=== PATIENT | female | born 1950 | race Caucasian/White ===

== ENCOUNTER 2017-05-24 09:03 | Inpatient (IN) | payer OTHER ==
[~2017-05-24] VITALS: Ht 144.8 cm; Wt 62.6 kg
[2017-05-24] VITALS (18 sets, daily range): BP systolic 95–150; BP diastolic 52–78; PULSE 81–113; RESP 16–24; TEMP 96.5–102.1; O2SAT 91–98
[~2017-05-24 09:03] MED LIST: PROZ20CA11 PO
[2017-05-24] MEDS ORDERED: VENL150C39 PO (09:49)
[2017-05-24] MEDS ORDERED: SODIUM CHLOR 0.9% 1000 ML INJ 1,000 ML IV ONE (10:08)
--- NOTE | 2017-05-24 10:08 | PD ---
HPI Chief Complaint: Cold / Flu Symptoms Time Seen by Provider: 09:50 Travel History International Travel<30 days: No Contact w/Intl Traveler<30days: No Traveled to known affect area: No History of Present Illness HPI This is a 66 year old female who presents to the emergency department with wet cough, fever, congestion and shortness of breath for 6 days, moderate severity, constant, associated with a productive cough with green sputum production. Pt has had decreased appetite and is eating and drinking less. (-) n/v/d (-) abdominal pain (-) dysuria Pt. did recently watch her sister's grandchildren who had colds. PFSH Past Medical History Narrative Medical depression Medical History: Denies Significant Hx Depression: Yes Immunizations Current: Yes Past Surgical History Joint Replacement: Yes (RIGHT KNEE) Social History Alcohol Use: No Tobacco Use: No (FORMER) Substance Use: No Allergies-Medications (Allergen,Severity, Reaction): Coded Allergies: No Known Allergies (Unverified Allergy, Unknown, 05/24/17) Reported Meds & Prescriptions Reported Meds & Active Scripts Active Reported Venlafaxine ER 24 HR (Venlafaxine HCl) 150 Mg Cap 150 Mg PO DAILY Review of Systems Except as stated in HPI: all other systems reviewed are Neg Physical Exam Narrative GENERAL:Uncomfortable appearing SKIN: Focused skin assessment warm and dry. HEAD: Atraumatic. Normocephalic. EYES: Pupils equal and round. No injection or drainage. ENT: Moist mucous membranes NECK: Trachea midline. CARDIOVASCULAR: Regular rate and rhythm. No murmur appreciated. RESPIRATORY: Wet cough with sputum production, Diffuse rhonchi with labored respirations GASTROINTESTINAL: Abdomen soft, non-tender, nondistended. MUSCULOSKELETAL: No obvious deformities. NEUROLOGICAL: Awake and alert. No obvious cranial nerve deficits. Moving all extremities PSYCHIATRIC: Appropriate mood and affect; insight and judgment normal. Data Data Last Documented VS Vital Signs Date Time Temp Pulse Resp B/P (MAP) Pulse Ox O2 Delivery O2 Flow Rate FiO2 05/24/17 11:25 94 20 101/52 (68) 97 Nasal Cannula 2.00 05/24/17 10:55 21 05/24/17 09:05 102.1 Orders Orders Complete Blood Count With Diff (05/24/17 10:08) Comprehensive Metabolic Panel (05/24/17 10:08) Lactic Acid Sepsis Protocol (05/24/17 10:08) Influenzae A/B Antigen (05/24/17 10:08) Blood Culture (05/24/17 10:08) Chest, Single Ap (05/24/17 10:08) Blood Glucose (05/24/17 10:08) Ecg Monitoring (05/24/17 10:08) Iv Access Insert/Monitor (05/24/17 10:08) Oximetry (05/24/17 10:08) Oxygen Administration (05/24/17 10:08) Sodium Chlor 0.9% 1000 Ml Inj (Ns 1000 M (05/24/17 10:08) Ceftriaxone Inj (Rocephin Inj) (05/24/17 10:15) Azithromycin (Zithromax) (05/24/17 10:15) Acetaminophen (Tylenol) (05/24/17 10:15) Albuterol-Ipratropium Neb (Duoneb Neb) (05/24/17 10:45) Type And Screen (05/24/17 11:04) Prothrombin Time / Inr (Pt) (05/24/17 11:04) Act Partial Throm Time (Ptt) (05/24/17 11:04) Hemoglobin (Hgb) (05/24/17 11:04) Red Blood Cells (Rbc) (05/24/17 12:02) Blood Product Administration (05/24/17 12:02) Sodium Chlor 0.9% 250 Ml Inj (Ns 250 Ml (05/24/17 12:15) Admit Order (Ed Use Only) (05/24/17 12:15) Labs Laboratory Tests Test 05/24/17 10:35 05/24/17 11:14 White Blood Count 13.8 TH/MM3 Red Blood Count 4.19 MIL/MM3 Hemoglobin 6.8 GM/DL 6.3 GM/DL Hematocrit 23.6 % Mean Corpuscular Volume 56.4 FL Mean Corpuscular Hemoglobin 16.1 PG Mean Corpuscular Hemoglobin Concent 28.6 % Red Cell Distribution Width 19.1 % Platelet Count 262 TH/MM3 Mean Platelet Volume 8.4 FL Neutrophils (%) (Auto) 85.3 % Lymphocytes (%) (Auto) 8.6 % Monocytes (%) (Auto) 5.4 % Eosinophils (%) (Auto) 0.1 % Basophils (%) (Auto) 0.6 % Neutrophils # (Auto) 11.8 TH/MM3 Lymphocytes # (Auto) 1.2 TH/MM3 Monocytes # (Auto) 0.7 TH/MM3 Eosinophils # (Auto) 0.0 TH/MM3 Basophils # (Auto) 0.1 TH/MM3 CBC Comment AUTO DIFF Differential Comment AUTO DIFF CONFIRMED Keratocytes OCC Blood Urea Nitrogen 6 MG/DL Creatinine 0.54 MG/DL Random Glucose 112 MG/DL Total Protein 7.9 GM/DL Albumin 2.7 GM/DL Calcium Level 8.5 MG/DL Alkaline Phosphatase 82 U/L Aspartate Amino Transf (AST/SGOT) 20 U/L Alanine Aminotransferase (ALT/SGPT) 24 U/L Total Bilirubin 0.3 MG/DL Sodium Level 137 MEQ/L Potassium Level 3.2 MEQ/L Chloride Level 102 MEQ/L Carbon Dioxide Level 25.0 MEQ/L Anion Gap 10 MEQ/L Estimat Glomerular Filtration Rate 114 ML/MIN Lactic Acid Level 2.7 mmol/L Prothrombin Time 11.1 SEC Prothromb Time International Ratio 1.0 RATIO Activated Partial Thromboplast Time 30.9 SEC MDM Medical Decision Making Medical Screen Exam Complete: Yes Emergency Medical Condition: Yes Interpretation(s) Microcytic anemia Leukocytosis 85% neutrophils Mild hypokalemia Lactic acid is 2.7 Chest x-ray: Patchy airspace disease in both lungs Differential Diagnosis Pneumonia, bronchitis, COPD exacerbation, pleural effusion, urinary tract infection, anemia, GI bleeding Narrative Course This is a 66-year-old female who presents to the emergency department with sepsis in the setting respiratory symptoms. She was febrile, tachycardic to 113 , and had a lactic acid of 2.7. She was placed on a monitor and an IV was established. She was given 1 L of IV hydration. A second liter was deferred as the patient is chronically ill and was likely going to receive blood transfusion and I was concerned about volume overload. Patient received empiric antibiotic therapy for pneumonia. Hemoccult was negative. I suspect her anemia is in the setting of chronic iron deficiency as she is significantly microcytic. Patient was admitted for continued IV antibiotics and blood transfusion. Physician Communication Physician Communication Discussed with Dr. Cifuentes Diagnosis Primary Impression: Community acquired pneumonia Qualified Codes: J18.9 - Pneumonia, unspecified organism Additional Impression: Sepsis Qualified Codes: A41.9 - Sepsis, unspecified organism Admitting Information Admitting Physician Requests: Admit Scripts Docusate Sodium (Dok) 100 Mg Cap 100 MG PO BID for Constipation, #60 CAP Prov: Magen Harrison MD 05/28/17 Albuterol 18 GM Inh (Ventolin Hfa 18 GM Inh) 90 Mcg/Act Aer 2 PUFF INH Q4-6H Y for SHORTNESS OF BREATH, #1 INHALER 0 Refills Prov: Magen Harrison MD 05/28/17 Omeprazole (Omeprazole) 40 Mg Cap 40 MG PO DAILY for ULCER, #30 CAP 0 Refills Prov: Magen Harrison MD 05/28/17 Ferrous Sulfate (Ferosul) 325 Mg (65 Mg Iron) Tablet 325 MG PO BID for anemia for 30 Days, TAB Prov: Magen Harrison MD 05/28/17 Levofloxacin (Levaquin) 750 Mg Tablet 750 MG PO DAILY for Infection for 1 Day, #1 TAB Prov: Magen Harrison MD 05/28/17 Kandy Nieves MD May 24, 2017 10:08
[2017-05-24] MEDS ORDERED: cefTRIAXone INJ 1,000 MG in SODIUM CHLORIDE 0.9% INJ 100 ML IV ONE (10:15)
[2017-05-24] MEDS ORDERED: AZITHROMYCIN 250 MG TAB PO ONE (10:15)
[2017-05-24] MEDS ORDERED: ACETAMINOPHEN 500 MG CPLT PO ONE (10:15)
--- NOTE | 2017-05-24 10:38 | RADRPT ---
EXAM DATE/TIME: 05/24/2017 10:20 [place] COMPARISON: No previous studies available for comparison. INDICATIONS : Fever, difficulty breathing, congestion. MEDICAL HISTORY : None. SURGICAL HISTORY : None. ENCOUNTER: Initial ACUITY: 1 week PAIN SCORE: 0/10 LOCATION: Bilateral chest FINDINGS: Patchy airspace disease in both lungs with peribronchial thickening. Heart size is appropriate. The re is no pneumothorax. CONCLUSION: Patchy airspace disease both lungs consistent with an inflammatory process. There is no consolidatio n. Renard Clark MD FACR on May 24, 2017 at 10:35 Board Certified Radiologist. This report was verified electronically.
[2017-05-24] MEDS ORDERED: RESP: ALBUTEROL 2.5 MG/IPRATROPIUM 0.5 MG NEB (SCH) NEB ONE (10:45)
[2017-05-24 10:58] LABS: AUTOMATED NEUTROPHIL # 11.8 TH/MM3 (1.8-7.7); BASOPHIL # 0.1 TH/MM3 (0-0.2); BASOPHIL % 0.6 % (0.0-2.0); EOSINOPHIL % 0.1 % (0.0-4.0); HEMATOCRIT 23.6 % (35.0-46.0); LYMPH % 8.6 % (9.0-44.0); LYMPHOCYTE # 1.2 TH/MM3 (1.0-4.8); MEAN CELL VOLUME 56.4 FL (80.0-100.0); MEAN CORPUSCULAR HEMOGLOBIN 16.1 PG (27.0-34.0); MONO % 5.4 % (0.0-8.0); NEUT % 85.3 % (16.0-70.0); PLATELET COUNT 262 TH/MM3 (150-450); RED BLOOD COUNT 4.19 MIL/MM3 (4.00-5.30); RED CELL DISTRIBUTION WIDTH 19.1 % (11.6-17.2); WHITE BLOOD COUNT 13.8 TH/MM3 (4.0-11.0)
[2017-05-24 10:59] LABS: MEAN CORPUSCULAR HGB CONC 28.6 % (32.0-36.0)
[2017-05-24 11:00] LABS: HEMO FLAGS AUTO DIFF
[2017-05-24 11:16] LABS: CHLORIDE 102 MEQ/L (98-107); POTASSIUM 3.2 MEQ/L (3.5-5.1); SODIUM (NA) 137 MEQ/L (136-145)
[2017-05-24 11:18] LABS: KERATOCYTES OCC (NORMAL); SCAN/DIFF AUTO DIFF CONFIRMED
[2017-05-24 11:19] LABS: ANION GAP 10 MEQ/L (5-15); BLOOD UREA NITROGEN 6 MG/DL (7-18)
[2017-05-24 11:22] LABS: ALT (GPT) 24 U/L (10-53); AST (GOT) 20 U/L (15-37)
[2017-05-24 11:23] LABS: GLOMERULAR FILTRATION RATE 114 ML/MIN (>89)
[2017-05-24 11:24] LABS: TOTAL BILIRUBIN ADULT 0.3 MG/DL (0.2-1.0)
[2017-05-24 11:25] LABS: ALKALINE PHOSPHATASE 82 U/L (45-117)
[2017-05-24 11:45] LABS: APTT (PATIENT) 30.9 SEC (24.3-30.1); PROTHROMBIN TIME - PATIENT 11.1 SEC (9.8-11.6)
[2017-05-24] MEDS ORDERED: SODIUM CHLOR 0.9% 250 ML INJ 250 ML IV ONE (12:15)
[2017-05-24] MEDS ORDERED: SODIUM CHLOR 0.9% 1000 ML INJ 1,000 ML IV SCH (12:48)
[2017-05-24 12:54] LABS: LACTIC ACID GHOST NOT REPORTABLE
[2017-05-24] MEDS ORDERED: MAGNESIUM HYDROXIDE SUSP 30 ML CUP PO PRN (13:00)
[2017-05-24] MEDS: LACTOBACILLUS ACIDOPHILUS TAB PO SCH ×2 (13:00→17:13)
[2017-05-24] MEDS ORDERED: ACETAMINOPHEN/HYDROcodone 325 MG/5 MG TAB PO PRN (13:00)
[2017-05-24] MEDS ORDERED: NALOXONE HCL 0.4 MG/ML AMP IV PUSH PRN (13:00)
[2017-05-24] MEDS ORDERED: SODIUM CHLORIDE 0.9% FLUSH 10 ML FLUSH IV FLUSH PRN (13:00)
[2017-05-24] MEDS ORDERED: ONDANSETRON HCL 4 MG/2 ML VIAL IVP PRN (13:00)
--- NOTE | 2017-05-24 15:12 | HHI.HP ---
[facility] Service [place] [facility] Primary Care Physician No Primary Care Physician Admission Diagnosis pneumonia Diagnoses: (1) Severe anemia Diagnosis: Principal (2) Symptomatic anemia Diagnosis: Principal (3) Community acquired pneumonia Diagnosis: Principal (4) Sepsis Diagnosis: Principal Travel History International Travel<30 Days: No Contact w/Intl Traveler <30 Da: No Traveled to Known Affected Are: No History of Present Illness Mrs. Miranda is a 66-year-old female. She came in secondary to fevers and cough. Fever, tachycardia, leukocytosis, and pneumonia qualified her for sepsis. No hypotension. She says that she isn't feeling ill for several days and with the onset of fever with progressively worsening cough she decided to come to emergency department at the urging of her sister. Anemia is also discovered. She has a hemoglobin level of 6.3 without evidence of GI bleed. We discussed different possibilities. When I mentioned poor iron absorption or low vitamin levels she admits that she has a poor diet and will often consume a liquid diet mostly. Malnutrition could be an etiology for her anemia then, but further workup is needed. She cannot recall any active bleed. She has not had any recent surgeries. She has a prior history of anemia without any need a transfusion that she can recall. No chest pain reported. She does have myalgias. Imaging shows bilateral pneumonia. At baseline she has hyperlipidemia and depression. She does not take cholesterol medicine secondary to a history of recall of one of her medications to try to treat her cholesterol with and the lack of trust in cholesterol medication treatments. She is on Effexor for depression treatment. No other complaints today. Review of Systems Constitutional: COMPLAINS OF: Fatigue, Fever, Chills, Night Sweats Eyes: DENIES: Diplopia, Eye inflammation, Eye pain Ears, nose, mouth, throat: DENIES: Hearing loss, Vertigo, Nasal discharge Respiratory: COMPLAINS OF: Cough, Sputum production, Shortness of breath, DENIES: Apneas, Wheezing Cardiovascular: DENIES: Chest pain, Palpitations, Syncope Gastrointestinal: DENIES: Abdominal pain, Black stools, Bloody stools, Constipation Musculoskeletal: DENIES: Joint pain, Muscle aches, Stiffness, Joint Swelling Integumentary: DENIES: Abnormal pigmentation, Pruritus, Rash, Nail changes Hematologic/lymphatic: DENIES: Bruising, Lymphadenopathy Immunologic/allergic: DENIES: Eczema, Urticaria Neurologic: DENIES: Abnormal gait, Headache, Paresthesias Psychiatric: DENIES: Anxiety, Confusion, Hallucinations Past Family Social History Past Medical History Depression Hyperlipidemia Past Surgical History Right knee surgery Reported Medications Reported Meds & Active Scripts Active Reported Venlafaxine ER 24 HR (Venlafaxine HCl) 150 Mg Cap 150 Mg PO DAILY Allergies: Coded Allergies: No Known Allergies (Unverified Allergy, Unknown, 05/24/17) Active Ordered Medications Administered Medications Medications (Trade) Dose Ordered Sig/[place] Route PRN Reason Start Time Stop Time Status Last Admin Dose Admin Sodium Chloride 250 ml @ 15 mls/hr ONCE ONCE IV 05/24/17 12:15 05/25/17 04:54 05/24/17 14:34 Sodium Chloride 1,000 ml @ 100 mls/hr Q10H IV 05/24/17 12:48 05/24/17 14:34 Family History Diabetes mellitus type 2 and patient's mother Social History No history of smoking No history of alcohol abuse No history of illicit drug abuse Physical Exam Vital Signs Vital Signs Date Time Temp Pulse Resp B/P (MAP) Pulse Ox O2 Delivery O2 Flow Rate FiO2 05/24/17 14:20 05/24/17 13:30 92 16 98/53 (68) 96 Nasal Cannula 2.00 05/24/17 12:57 99.0 97 20 99/52 (68) 94 Nasal Cannula 2.00 05/24/17 11:25 94 20 101/52 (68) 97 Nasal Cannula 2.00 05/24/17 10:55 91 21 05/24/17 10:55 97 Nasal Cannula 2.00 05/24/17 10:55 20 97 Nasal Cannula 2.00 05/24/17 10:00 113 20 111/69 (83) 97 Nasal Cannula 2.00 05/24/17 09:51 20 91 Room Air 05/24/17 09:05 102.1 113 24 150/78 (102) 95 Physical Exam GENERAL: NAD, A&Ox3 HEAD: Normocephalic. NECK: Supple, trachea midline. No lymphadenopathy. EYES: No scleral icterus. No injection or drainage. CARDIOVASCULAR: Regular rate and rhythm without murmurs, gallops, or rubs. RESPIRATORY: Breath sounds equal bilaterally. No accessory muscle use. Bilateral rhonchi GASTROINTESTINAL: Abdomen soft, non-tender, nondistended. MUSCULOSKELETAL: No cyanosis, or edema. SKIN: Warm and dry. NEURO: No focal neurological deficitis. Laboratory Laboratory Tests Test 05/24/17 10:35 05/24/17 11:14 05/24/17 12:45 White Blood Count 13.8 Red Blood Count 4.19 Hemoglobin 6.8 6.3 Hematocrit 23.6 Mean Corpuscular Volume 56.4 Mean Corpuscular Hemoglobin 16.1 Mean Corpuscular Hemoglobin Concent 28.6 Red Cell Distribution Width 19.1 Platelet Count 262 Mean Platelet Volume 8.4 Neutrophils (%) (Auto) 85.3 Lymphocytes (%) (Auto) 8.6 Monocytes (%) (Auto) 5.4 Eosinophils (%) (Auto) 0.1 Basophils (%) (Auto) 0.6 Neutrophils # (Auto) 11.8 Lymphocytes # (Auto) 1.2 Monocytes # (Auto) 0.7 Eosinophils # (Auto) 0.0 Basophils # (Auto) 0.1 CBC Comment AUTO DIFF Differential Comment AUTO DIFF CONFIRMED Keratocytes OCC Blood Urea Nitrogen 6 Creatinine 0.54 Random Glucose 112 Total Protein 7.9 Albumin 2.7 Calcium Level 8.5 Alkaline Phosphatase 82 Aspartate Amino Transf (AST/SGOT) 20 Alanine Aminotransferase (ALT/SGPT) 24 Total Bilirubin 0.3 Sodium Level 137 Potassium Level 3.2 Chloride Level 102 Carbon Dioxide Level 25.0 Anion Gap 10 Estimat Glomerular Filtration Rate 114 Lactic Acid Level 2.7 1.5 Prothrombin Time 11.1 Prothromb Time International Ratio 1.0 Activated Partial Thromboplast Time 30.9 Date/Time Source Procedure Growth Status 05/24/17 10:45 Blood Peripheral Aerobic Blood Culture Pending Received 05/24/17 10:45 Blood Peripheral Anaerobic Blood Culture Pending Received 05/24/17 10:50 Nasal Washing Influenza Types A,B Antigen (MARIO) - Final NEGATIVE FOR FLU A AND B ANTIGEN.... Complete Result Diagram: 05/24/17 1114 05/24/17 1035 Imaging Last Impressions Chest X-Ray 05/24/17 1008 Signed Impressions: Service Date/Time: Wednesday, May 24, 2017 10:20 - CONCLUSION: Patchy airspace disease both lungs consistent with an inflammatory process. There is no consolidation. Renard Clark MD FACR Caprini VTE Risk Assessment Caprini VTE Risk Assessment: No/Low Risk (score <= 1) Caprini Risk Assessment Model Point Value = 1 Point Value = 2 Point Value = 3 Point Value = 5 Age 41-60 Minor surgery BMI > 25 kg/m2 Swollen legs Varicose veins or History of unexplained or recurrent spontaneous Oral contraceptives or hormone replacement Sepsis (< 1 month) Serious lung disease, including pneumonia (< 1 month) Abnormal pulmonary function Acute myocardial infarction Congestive heart failure (< 1 month) History of inflammatory bowel disease Medical patient at bed rest Age 61-74 Arthroscopic surgery Major open surgery (> 45 min) Laparoscopic surgery (> 45 min) Malignancy Confined to bed (> 72 hours) Immobilizing plaster cast Central venous access Age >= 75 History of VTE Family history of VTE Factor V Leiden Prothrombin [id number] Lupus anticoagulant Anticardiolipin antibodies Elevated serum homocysteine Heparin-induced thrombocytopenia Other congenital or acquired thrombophilia Stroke (< 1 month) Elective arthroplasty Hip, pelvis, or leg fracture Acute spinal cord injury (< 1 month) Prophylaxis Regimen Total Risk Factor Score Risk Level Prophylaxis Regimen 0-1 Low Early ambulation 2 Moderate Order ONE of the following: *Sequential Compression Device (SCD) *Heparin 5000 units SQ BID 3-4 Higher Order ONE of the following medications: *Heparin 5000 units SQ TID *Enoxaparin/Lovenox 40 mg SQ daily (WT < 150 kg, CrCl > 30 mL/min) *Enoxaparin/Lovenox 30 mg SQ daily (WT < 150 kg, CrCl > 10-29 mL/min) *Enoxaparin/Lovenox 30 mg SQ BID (WT < 150 kg, CrCl > 30 mL/min) AND/OR *Sequential Compression Device (SCD) 5 or more Highest Order ONE of the following medications: *Heparin 5000 units SQ TID (Preferred with Epidurals) *Enoxaparin/Lovenox 40 mg SQ daily (WT < 150 kg, CrCl > 30 mL/min) *Enoxaparin/Lovenox 30 mg SQ daily (WT < 150 kg, CrCl > 10-29 mL/min) *Enoxaparin/Lovenox 30 mg SQ BID (WT < 150 kg, CrCl > 30 mL/min) AND *Sequential Compression Device (SCD) Assessment and Plan Problem List: (1) Community acquired pneumonia ICD Code: J18.9 - Pneumonia, unspecified organism (2) Severe anemia ICD Code: D64.9 - Anemia, unspecified (3) Symptomatic anemia ICD Code: D64.9 - Anemia, unspecified (4) Sepsis ICD Code: A41.9 - Sepsis, unspecified organism Assessment and Plan Assessment and plan 66-year-old female admitted secondary to bilateral pneumonia with sepsis Sepsis Treat infection Follow clinically IV hydration Monitor vital signs Bilateral pneumonia Community-acquired pneumonia Azithromycin Rocephin Probiotics Oxygen supplementation as needed As needed nebulized breathing treatments Severe anemia Symptomatic anemia Transfuse 1 unit of packed red blood cells on 05/24/17 Follow CBC Check iron studies Check B12 level Reticulocyte count Depression Continue Effexor Hyperlipidemia Check fasting lipid profile Patient unlikely to be compliant with any treatment, recommend dietary changes if needed DVT Prophylaxis SCDs Physician Certification 2 Midnight Certification Type: Admission for Inpatient Services Order for Inpatient Services The services are ordered in accordance with Medicare regulations or non- Medicare payer requirements, as applicable. In the case of services not specified as inpatient-only, they are appropriately provided as inpatient services in accordance with the 2-midnight benchmark. Estimated LOS (days): 3 days is the estimated time the patient will need to remain in the hospital, assuming treatment plan goals are met and no additional complications. Post-Hospital Plan: Arvind Florez MD May 24, 2017 15:12
[2017-05-24] MEDS ORDERED: ACETAMINOPHEN 500 MG CPLT PO PRN (17:15)
[2017-05-24] MEDS ORDERED: FUROSEMIDE 20 MG/2 ML VIAL IV PUSH ONE (18:30)
[2017-05-24] MEDS: SODIUM CHLORIDE 0.9% FLUSH 10 ML FLUSH IV FLUSH SCH (20:18)
[2017-05-25] VITALS (8 sets, daily range): BP systolic 100–114; BP diastolic 55–71; PULSE 74–85; RESP 18–20; TEMP 98–98.8; O2SAT 93–100
[2017-05-25 06:45] LABS: AUTOMATED NEUTROPHIL # 6.4 TH/MM3 (1.8-7.7); BASOPHIL # 0.1 TH/MM3 (0-0.2); BASOPHIL % 0.6 % (0.0-2.0); EOSINOPHIL # 0.1 TH/MM3 (0-0.4); EOSINOPHIL % 1.1 % (0.0-4.0); HEMATOCRIT 25.3 % (35.0-46.0); LYMPH % 25.1 % (9.0-44.0); LYMPHOCYTE # 2.4 TH/MM3 (1.0-4.8); MEAN CELL VOLUME 61.3 FL (80.0-100.0); MEAN CORPUSCULAR HEMOGLOBIN 18.4 PG (27.0-34.0); MONO % 5.8 % (0.0-8.0); NEUT % 67.4 % (16.0-70.0); PLATELET COUNT 223 TH/MM3 (150-450); RED BLOOD COUNT 4.12 MIL/MM3 (4.00-5.30); RED CELL DISTRIBUTION WIDTH 22.6 % (11.6-17.2); WHITE BLOOD COUNT 9.6 TH/MM3 (4.0-11.0)
[2017-05-25 06:51] LABS: CHLORIDE 107 MEQ/L (98-107); POTASSIUM 3.4 MEQ/L (3.5-5.1); SODIUM (NA) 144 MEQ/L (136-145)
[2017-05-25 06:53] LABS: HEMO FLAGS AUTO DIFF
[2017-05-25 06:56] LABS: ANION GAP 7 MEQ/L (5-15); BICARBONATE 29.6 MEQ/L (21.0-32.0); BLOOD UREA NITROGEN 7 MG/DL (7-18)
[2017-05-25 06:59] LABS: ALT (GPT) 20 U/L (10-53); AST (GOT) 15 U/L (15-37); GLOMERULAR FILTRATION RATE 144 ML/MIN (>89)
[2017-05-25 07:01] LABS: TOTAL BILIRUBIN ADULT 0.5 MG/DL (0.2-1.0)
[2017-05-25 07:02] LABS: ALKALINE PHOSPHATASE 76 U/L (45-117)
[2017-05-25 07:42] LABS: OVALOCYTES 1+ (NORMAL); TARGET CELLS 1+ (NORMAL)
[2017-05-25 07:43] LABS: SCAN/DIFF AUTO DIFF CONFIRMED
[2017-05-25] MEDS: VENLAFAXINE HCL XR 75 MG CAP PO SCH (08:27)
[2017-05-25] MEDS: SODIUM CHLORIDE 0.9% FLUSH 10 ML FLUSH IV FLUSH SCH ×2 (08:27→19:55)
[2017-05-25] MEDS: LACTOBACILLUS ACIDOPHILUS TAB PO SCH ×3 (08:27→17:14)
[2017-05-25 09:15] LABS: RETIC % 1.1 % (0.4-3.0); REVIEW FLAG FINAL
[2017-05-25] MEDS ORDERED: POTASSIUM CHLORIDE 10 MEQ CONTROLLED RELEASE TAB PO ONE (09:15)
[2017-05-25] MEDS: AZITHROMYCIN INJ 500 MG in SODIUM CHLOR 0.9% 250 ML INJ 250 ML IV SCH (09:33)
[2017-05-25 10:05] LABS: FERRITIN 63 NG/ML (8-252); HDL CHOLESTEROL 30.8 MG/DL (40.0-60.0); LDL CHOLESTEROL 60 MG/DL (0-99); TRANSFERRIN IRON PROFILE 225 MG/DL (200-360)
[2017-05-25] MEDS ORDERED: POLYETHYLENE GLYCOL 17 GM PKG PO ONE (10:15)
--- NOTE | 2017-05-25 10:15 | HHI.PR ---
Subjective Remarks Patient states she feels like "i have come back from the ." Much improved. No SOB. Low grade fever overnight. Cough improved. Patient states she has dysphagia today. She usually takes a liquid diet and jumps from fad diet to fad diet-lately lemon with water. Patient has never had colonoscopy. no hematochezia, melena. no weight loss or change in caliber of stools. Objective Vitals Vital Signs Date Time Temp Pulse Resp B/P (MAP) Pulse Ox O2 Delivery O2 Flow Rate FiO2 05/25/17 08:00 98.8 78 20 105/71 (82) 100 05/25/17 00:00 98.1 85 18 100/56 (71) 99 05/24/17 20:29 94 21 05/24/17 20:04 82 05/24/17 20:00 97.9 82 16 101/56 (71) 93 05/24/17 18:17 100.0 85 18 116/72 (87) 94 05/24/17 17:47 100.2 05/24/17 16:00 101.1 89 18 125/64 (84) 97 05/24/17 15:58 96.5 82 18 112/60 95 05/24/17 15:39 98.5 81 18 99/66 95 05/24/17 15:24 99.5 91 18 99/68 95 05/24/17 15:09 99.6 102 18 95/68 96 05/24/17 14:51 81 05/24/17 14:45 99.6 83 18 96/54 (68) 98 05/24/17 14:20 05/24/17 13:30 92 16 98/53 (68) 96 Nasal Cannula 2.00 05/24/17 12:57 99.0 97 20 99/52 (68) 94 Nasal Cannula 2.00 05/24/17 11:25 94 20 101/52 (68) 97 Nasal Cannula 2.00 05/24/17 10:55 91 21 05/24/17 10:55 97 Nasal Cannula 2.00 05/24/17 10:55 20 97 Nasal Cannula 2.00 I/O 05/24/17 05/24/17 05/24/17 05/25/17 05/25/17 05/25/17 07:00 15:00 23:00 07:00 15:00 23:00 Intake Total 1100 ml 1137 ml 280 ml Balance 1100 ml 1137 ml 280 ml Intake Oral 280 ml IV Total 1100 ml 87 ml Packed Cells 400 ml Blood Product IV Normal Saline Flush 650 ml # Voids 2 1 # Bowel Movements 0 0 Result Diagram: 05/25/1752905/25/17529 Objective Remarks GENERAL: Well-nourished, well-developed CF patient. SKIN: Warm and dry. HEAD: Normocephalic. EYES: No scleral icterus. No injection or drainage. NECK: Supple, trachea midline. No JVD or lymphadenopathy. CARDIOVASCULAR: Regular rate and rhythm without murmurs, gallops, or rubs. RESPIRATORY: Breath sounds equal bilaterally. Crackles in LLL. No accessory muscle use. GASTROINTESTINAL: Abdomen soft, non-tender, nondistended. EXTREMITIES: No cyanosis, or edema. NEUROLOGICAL: Awake, alert, and oriented x 3. Non-focal. A/P Problem List: (1) Community acquired pneumonia ICD Code: J18.9 - Pneumonia, unspecified organism (2) Severe anemia ICD Code: D64.9 - Anemia, unspecified (3) Symptomatic anemia ICD Code: D64.9 - Anemia, unspecified (4) Sepsis ICD Code: A41.9 - Sepsis, unspecified organism Assessment and Plan -B/l community acquired PNA, cxr with b/l patchy infiltrates - clinically improved, continue rocephin and zithromax, O2 via NC. -Severe anemia - Fe low. Patient has poor diet (liquid fad diets). S/p transfusion 1 units pRBC, Hb 7.6 today. Patient has dysphagia. Pt has never had colonoscopy . Hemoccult pending. Pt has chronic constipation. Consult gastroenterology. -Depression, HLD - continue home meds. -DVT px - SCDs Marissa Llamas MD May 25, 2017 10:15
[2017-05-25] MEDS: cefTRIAXone INJ 1,000 MG in SODIUM CHLORIDE 0.9% INJ 100 ML IV SCH (11:55)
--- NOTE | 2017-05-25 19:19 | MB ---
cc: IZAIAH ORTIZ DATE OF CONSULTATION 05/25/2017 DATE OF [address] Cifuentes. REASON FOR REFERRAL Severe anemia, possible GI bleed. The patient also has dyspepsia. HISTORY OF THE PRESENT ILLNESS Thank you for the consultation. A 66-year-old lady who had a history of a few days of fever, cough, tachycardia and found to have white count elevation and severe anemia, found to have pneumonia. The patient was getting worse and her hemoglobin was 6.3. The patient denied any significant history of GI bleed. No bright red blood per rectum. No black stool. No nausea or vomiting but she said that she has history of iron malabsorption in the past that she was told by some physician in the past. She does not have any history of where she had her care. Next the patient seems to be poorly nourished. She said she usually takes liquid diet. Questionable dysphagia even though the patient denied that. She said she has been anemic in the past but never had a full workup. She has history of depression currently laying in bed comfortably. She feels that she is doing better. She had bilateral pneumonia on imaging. She started to feel better after antibiotics. No other GI complaints. PAST MEDICAL HISTORY Significant for: 1. Hyperlipidemia. 2. Depression. 3. Right knee surgery. MEDICATIONS Reviewed in the chart. ALLERGIES No allergies. FAMILY HISTORY Significant for diabetes. SOCIAL HISTORY Negative for tobacco, drug or alcohol. REVIEW OF SYSTEMS All 12-point negative except HPI. PHYSICAL EXAMINATION GENERAL: Alert, oriented, in no acute distress. HEENT: Pupils are round and reactive to light. NECK: Supple. CHEST: Bilateral rhonchi. CARDIOVASCULAR: Regular rate and rhythm. No murmur or gallop. ABDOMEN: Soft, nondistended, nontender. Positive bowel sounds. EXTREMITIES: No edema, clubbing or cyanosis. NEUROLOGIC: Neurologically intact. PSYCHOLOGIC: Appropriate. LABORATORY DATA White blood cell 13.8, today is 9.6. Hemoglobin 7.6 today up from 6.3. Platelet 223. INR 1.0. Liver function tests are normal. Iron was 19, saturation was 6%. ASSESSMENT/PLAN A 66-year-old lady with anemia, questionable dysphagia and no sign of active bleeding but the patient is severely iron deficient. I recommend to her work up with doing upper endoscopy and a colonoscopy but the patient said that she does not want to have any procedure inpatient and she would prefer to have those as an outpatient. I explained to her that this could be dangerous if there is any malignancy or she is actively losing blood but the patient does not want to proceed with any procedure at this time. I recommend supportive care. You can have iron supplement and you can treat with PPI empirically just in case the patient has peptic ulcer disease. I recommend followup with GI soon after discharge to schedule upper endoscopy and colonoscopy if the patient is willing to do that. If the patient changes her mind we will be happy to do the procedure as an inpatient. MD SANAZ Kirkland/KK /6:28 PM /6:57 PM
[2017-05-25] MEDS: RESP: ALBUTEROL 2.5 MG/3 ML NEB (PRN) NEB (21:41)
[2017-05-26] VITALS (13 sets, daily range): BP systolic 96–146; BP diastolic 50–78; PULSE 69–89; RESP 16–20; TEMP 98.3–99.6; O2SAT 93–100
[2017-05-26 06:43] LABS: BICARBONATE 27.5 MEQ/L (21.0-32.0)
[2017-05-26 06:54] LABS: AUTOMATED NEUTROPHIL # 7.7 TH/MM3 (1.8-7.7); BASOPHIL % 0.2 % (0.0-2.0); EOSINOPHIL # 0.2 TH/MM3 (0-0.4); EOSINOPHIL % 1.6 % (0.0-4.0); HEMATOCRIT 23.1 % (35.0-46.0); LYMPH % 22.8 % (9.0-44.0); LYMPHOCYTE # 2.5 TH/MM3 (1.0-4.8); MEAN CELL VOLUME 60.8 FL (80.0-100.0); MONO % 5.9 % (0.0-8.0); NEUT % 69.5 % (16.0-70.0); PLATELET COUNT 245 TH/MM3 (150-450); RED CELL DISTRIBUTION WIDTH 22.2 % (11.6-17.2)
[2017-05-26 06:58] LABS: MEAN CORPUSCULAR HGB CONC 29.7 % (32.0-36.0)
[2017-05-26 07:02] LABS: HEMO FLAGS AUTO DIFF
[2017-05-26 07:21] LABS: SCAN/DIFF AUTO DIFF CONFIRMED; TARGET CELLS 1+ (NORMAL)
[2017-05-26] MEDS ORDERED: POTASSIUM CHLORIDE 25 MEQ EFFERVESCENT TAB PO ONE (07:45)
[2017-05-26] MEDS ORDERED: guaiFENesin/DEXTROMETHORPHAN 200 MG/20 MG/10 ML CUP PO PRN (07:45)
[2017-05-26] MEDS ORDERED: ALPRAZolam 0.25 MG TAB PO PRN (08:45)
[2017-05-26] MEDS: NS + KCL 20 MEQ INJ 1,000 ML IV SCH ×2 (08:49→18:58)
[2017-05-26] MEDS: SODIUM CHLORIDE 0.9% FLUSH 10 ML FLUSH IV FLUSH SCH ×2 (08:50→21:05)
[2017-05-26] MEDS: VENLAFAXINE HCL XR 75 MG CAP PO SCH (08:51)
[2017-05-26] MEDS: LACTOBACILLUS ACIDOPHILUS TAB PO SCH ×3 (08:51→18:57)
[2017-05-26] MEDS ORDERED: SODIUM CHLOR 0.9% 250 ML INJ 250 ML IV ONE (09:00)
[2017-05-26] MEDS: AZITHROMYCIN INJ 500 MG in SODIUM CHLOR 0.9% 250 ML INJ 250 ML IV SCH (11:06)
[2017-05-26] MEDS: cefTRIAXone INJ 1,000 MG in SODIUM CHLORIDE 0.9% INJ 100 ML IV SCH (12:36)
--- NOTE | 2017-05-26 12:47 | HHI.GIFU ---
Subjective Remarks Patient is laying in bed, seemed to be comfortable, she had drop in her hemoglobin today but she already ate this morning Objective Vitals I&O Vital Signs Date Time Temp Pulse Resp B/P (MAP) Pulse Ox O2 Delivery O2 Flow Rate FiO2 05/26/17 11:52 98.7 76 16 104/68 99 05/26/17 08:00 98.4 74 20 98/57 (71) 95 05/26/17 04:00 98.6 69 20 109/55 (73) 99 05/26/17 00:00 98.3 77 20 96/50 (65) 99 05/25/17 21:41 98 Nasal Cannula 2.00 05/25/17 20:47 93 21 05/25/17 20:00 98.0 74 20 114/55 (74) 98 05/25/17 20:00 84 05/25/17 16:00 98.8 84 20 103/68 (80) 97 I/O 05/25/17 05/25/17 05/25/17 05/26/17 05/26/17 05/26/17 07:00 15:00 23:00 07:00 15:00 23:00 Intake Total 280 ml 1175 ml 720 ml 252 ml Balance 280 ml 1175 ml 720 ml 252 ml Intake Oral 280 ml 825 ml 720 ml IV Total 350 ml 250 ml Blood Product IV Normal Saline Flush 2 ml # Voids 1 3 2 # Bowel Movements 0 1 1 Laboratory Laboratory Tests Test 05/26/17 05:30 White Blood Count 11.0 Red Blood Count 3.80 Hemoglobin 6.9 Hematocrit 23.1 Mean Corpuscular Volume 60.8 Mean Corpuscular Hemoglobin 18.0 Mean Corpuscular Hemoglobin Concent 29.7 Red Cell Distribution Width 22.2 Platelet Count 245 Mean Platelet Volume 8.1 Neutrophils (%) (Auto) 69.5 Lymphocytes (%) (Auto) 22.8 Monocytes (%) (Auto) 5.9 Eosinophils (%) (Auto) 1.6 Basophils (%) (Auto) 0.2 Neutrophils # (Auto) 7.7 Lymphocytes # (Auto) 2.5 Monocytes # (Auto) 0.6 Eosinophils # (Auto) 0.2 Basophils # (Auto) 0.0 CBC Comment AUTO DIFF Differential Comment AUTO DIFF CONFIRMED Target Cells 1+ Blood Urea Nitrogen 5 Creatinine 0.34 Random Glucose 89 Calcium Level 8.0 Sodium Level 140 Potassium Level 3.0 Chloride Level 106 Carbon Dioxide Level 27.5 Anion Gap 7 Estimat Glomerular Filtration Rate 194 Date/Time Source Procedure Growth Status 05/24/17 10:45 Blood Peripheral Aerobic Blood Culture - Preliminary NO GROWTH IN 2 DAYS Resulted 05/24/17 10:45 Blood Peripheral Anaerobic Blood Culture - Preliminary NO GROWTH IN 2 DAYS Resulted 05/26/17 10:35 Stool Stool Stool Occult Blood (MARIO) Pending Received 05/24/17 10:50 Nasal Washing Influenza Types A,B Antigen (MARIO) - Final NEGATIVE FOR FLU A AND B ANTIGEN.... Complete Physical Exam HEENT: Pupils round and reactive to light; normocephalic; atraumatic; no jaundice. Throat is clear. NECK: Neck is supple, no JVD, no lymphadenopathy. CHEST: Chest is clear to auscultation and percussion except some bilateral crackles CARDIAC: Regular rate and rhythm with no murmur gallop or rubs. ABDOMEN: Soft, nondistended, nontender; no hepatosplenomegaly; bowel sounds are present in all four quadrants. EXTREMITIES: No clubbing, cyanosis, or edema. SKIN: Normal; no rash; no jaundice. 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 Assessment and Plan Plan Patient is a 66-year-old lady with multiple medical problems including pneumonia , she has severe anemia continue to drop her hemoglobin, initially she refused any GI workup as an inpatient including upper endoscopy and colonoscopy After discussing with the patient the fact that her hemoglobin continued to drop she is agreeable to have the colonoscopy and endoscopy now Recommendations Prep for colonoscopy with GoLYTELY Clear liquid nothing by mouth after midnight : EGD tomorrow Monitor hemoglobin Packed RBC as needed Virgie Lemos MD May 26, 2017 12:47
[2017-05-26 15:46] LABS: HEMATOCRIT 29.1 % (35.0-46.0)
[2017-05-26 15:49] LABS: REVIEW FLAG FINAL
[2017-05-26 15:59] LABS: POTASSIUM 3.6 MEQ/L (3.5-5.1)
[2017-05-26] MEDS ORDERED: PEG (High)/E-LYTE SOLN 4000 ML BTL PO ONE (16:00)
--- NOTE | 2017-05-26 17:04 | HHI.PR ---
Subjective Remarks Says that shortness of breath slightly improved from yesterday. Feels much better than admission. Denies any chest pain. She does report black tarry bowel movements on off recently. No bright red blood in bowel movement. denies abdominal pain. Objective Vital Signs Date Time Temp Pulse Resp B/P (MAP) Pulse Ox O2 Delivery O2 Flow Rate FiO2 05/26/17 14:30 99.6 78 16 141/69 99 05/26/17 13:52 98.9 71 17 146/70 96 05/26/17 13:22 99.0 76 16 137/60 100 05/26/17 12:52 99.0 89 18 109/58 05/26/17 12:37 99.2 78 16 137/60 05/26/17 12:22 99.0 72 17 125/63 05/26/17 12:07 99.2 73 16 125/58 100 05/26/17 11:52 98.7 76 16 104/68 99 05/26/17 08:00 98.4 74 20 98/57 (71) 95 05/26/17 04:00 98.6 69 20 109/55 (73) 99 05/26/17 00:00 98.3 77 20 96/50 (65) 99 05/25/17 21:41 98 Nasal Cannula 2.00 05/25/17 20:47 93 21 05/25/17 20:00 98.0 74 20 114/55 (74) 98 05/25/17 20:00 84 I/O 05/25/17 05/25/17 05/25/17 05/26/17 05/26/17 05/26/17 07:00 15:00 23:00 07:00 15:00 23:00 Intake Total 280 ml 1175 ml 720 ml 757 ml Balance 280 ml 1175 ml 720 ml 757 ml Intake Oral 280 ml 825 ml 720 ml IV Total 350 ml 350 ml Packed Cells 400 ml Blood Product IV Normal Saline Flush 7 ml # Voids 1 3 2 1 # Bowel Movements 0 1 1 1 Result Diagram: 05/26/17 1535 05/26/171534 Objective Remarks GENERAL: Patient sitting up in bed. Appears comfortable. SKIN: Warm and dry. HEAD: Normocephalic. EYES: No scleral icterus. No injection or drainage. NECK: Supple, trachea midline. No JVD. CARDIOVASCULAR: Regular rate and rhythm without murmurs, gallops, or rubs. RESPIRATORY: Breath sounds equal bilaterally. No accessory muscle use. GASTROINTESTINAL: Abdomen soft, non-tender, nondistended. Bilateral rhonchi. No wheezes. MUSCULOSKELETAL: No cyanosis, or edema. BACK: Nontender without obvious deformity. No CVA tenderness. A/P Assessment and Plan //B/l community acquired PNA, cxr with b/l patchy infiltrates - clinically improved, continue rocephin and zithromax, O2 via NC. -05/26. Respiratory status much improved. Continue antibiotics to complete course. Continue to monitor. //Severe anemia - Fe low. Patient has poor diet (liquid fad diets). S/p transfusion 1 units pRBC, Hb 7.6 today. Patient has dysphagia. Pt has never had colonoscopy . Hemoccult pending. Pt has chronic constipation. Consult gastroenterology. = 05/26. Haptoglobin high, LDH slightly high. No other evidence of hemolysis. Hemoglobin 8.5, improved after transfusion. IV iron 1. Plan for EGD/ colonoscopy tomorrow. //Depression, HLD - continue home meds. //Hypokalemia. Potassium 3.0 this morning. Replaced. Repeat 3.6. //DVT px - SCDs Discharge Planning EGD colonoscopy tomorrow. If hemoglobin stable, can possibly go home tomorrow. Magen Harrison MD May 26, 2017 17:04
[2017-05-26] MEDS: RESP: ALBUTEROL 2.5 MG/3 ML NEB (PRN) NEB (17:24)
[2017-05-26] MEDS: IRON SUCROSE INJ 100 MG in SODIUM CHLORIDE 0.9% INJ 100 ML IV ONE ×2 (18:00→18:58)
[2017-05-26] MEDS ORDERED: IRON SUCROSE INJ 100 MG in SODIUM CHLORIDE 0.9% INJ 100 ML IV ONE (19:45)
[2017-05-26] MEDS: ACETAMINOPHEN/HYDROcodone 325 MG/10 MG TAB PO PRN (21:03)
[2017-05-27] VITALS (10 sets, daily range): BP systolic 92–141; BP diastolic 52–73; PULSE 60–84; RESP 14–16; TEMP 97.1–98.8; O2SAT 61–98
[2017-05-27] MEDS ORDERED: LACTATED RINGER'S 1000 ML IV PRN (01:45)
[2017-05-27] MEDS: NS + KCL 20 MEQ INJ 1,000 ML IV SCH (03:32)
[2017-05-27 06:41] LABS: POTASSIUM 3.7 MEQ/L (3.5-5.1)
[2017-05-27 06:44] LABS: AUTOMATED NEUTROPHIL # 6.3 TH/MM3 (1.8-7.7); BASOPHIL % 0.5 % (0.0-2.0); EOSINOPHIL # 0.1 TH/MM3 (0-0.4); HEMATOCRIT 26.2 % (35.0-46.0); LYMPH % 21.9 % (9.0-44.0); MEAN CELL VOLUME 64.5 FL (80.0-100.0); MEAN CORPUSCULAR HEMOGLOBIN 19.9 PG (27.0-34.0); MEAN CORPUSCULAR HGB CONC 30.9 % (32.0-36.0); MONO % 5.4 % (0.0-8.0); NEUT % 71.2 % (16.0-70.0); PLATELET COUNT 239 TH/MM3 (150-450); RED BLOOD COUNT 4.07 MIL/MM3 (4.00-5.30); RED CELL DISTRIBUTION WIDTH 27.1 % (11.6-17.2); WHITE BLOOD COUNT 8.9 TH/MM3 (4.0-11.0)
[2017-05-27 06:46] LABS: BICARBONATE 26.6 MEQ/L (21.0-32.0); MAGNESIUM 2.1 MG/DL (1.5-2.5)
[2017-05-27 07:00] LABS: HEMO FLAGS AUTO DIFF
[2017-05-27] MEDS ORDERED: PROPOFOL 200 MG/20 ML AMP IV PUSH ONE (08:17)
[2017-05-27 08:25] LABS: TARGET CELLS 1+ (NORMAL)
--- NOTE | 2017-05-27 08:25 | PD.PROCEDR ---
GI Procedure PROCEDURE PERFORMED colon with polypectomy, EGD with dilation and biopsy INDICATION FOR PROCEDURE Anemia PROCEDURE: The procedure, risks and benefits were discussed with Ms. Miranda and informed consent was obtained. Anesthesia sedated her with Diprivan. She was placed in the left lateral decubitus position. EGD: The Pentax videoscope was introduced through the oropharynx and advanced to the second portion of the duodenum under direct visualization. Retroflexion was performed in the stomach, there was a small linear ulcers in the body of the stomach biopsy was done, small hiatal hernia, also stricture in the distal esophagus status post dilation with savory guidewire dilator size 17 mm. FINDINGS: Hiatal hernia Esophageal stricture dilated as above Small ulcers in the body of the stomach superficial, does not explain the severe anemia that the patient has Colonoscopy: The Pentax videoscope was introduced through the rectum and advanced to []. Retroflexion was performed in the rectum. Colonic prep was good, patient has severe melanosis coli, small 5 mm polyp removed FINDINGS: Small colon polyp Melanosis coli Internal hemorrhoids ESTIMATED BLOOD LOSS: None SPECIMENS REMOVED: Body of the stomach Small polyp from the colon COMPLICATIONS: None IMPRESSION: Small colon polyp Melanosis coli Hiatal hernia Esophageal stricture Small ulcerations in the body of the stomach These findings doesn't explain the patient's severe anemia PLAN: Small bowel follow-through Hematology consult Await biopsy May feet patient after small bowel follow-through Monitor H&H Virgie Lemos MD May 27, 2017 08:25
[2017-05-27 08:26] LABS: PLATELET ESTIMATE SMEAR NORMAL (NORMAL); PLATELET MORPHOLOGY NORMAL (NORMAL); SCAN/DIFF AUTO DIFF CONFIRMED; SPHEROCYTES 1+ (NORMAL)
--- NOTE | 2017-05-27 08:27 | HHI.GIFU ---
Subjective Remarks Patient is laying in bed comfortably, no active bleeding, feels better, tolerated prep Objective Vitals I&O Vital Signs Date Time Temp Pulse Resp B/P (MAP) Pulse Ox O2 Delivery O2 Flow Rate FiO2 05/27/17 07:34 98.2 60 15 114/56 (75) 96 05/27/17 06:33 98.2 61 16 141/56 (84) 61 05/27/17 04:00 98.2 68 16 114/56 (75) 96 05/27/17 00:00 98.6 68 16 101/54 (70) 94 05/26/17 20:41 2.00 05/26/17 20:00 99.4 78 16 123/60 (81) 97 05/26/17 16:00 99.2 72 16 112/78 (89) 93 05/26/17 14:30 99.6 78 16 141/69 99 05/26/17 13:52 98.9 71 17 146/70 96 05/26/17 13:22 99.0 76 16 137/60 100 05/26/17 12:52 99.0 89 18 109/58 05/26/17 12:37 99.2 78 16 137/60 05/26/17 12:22 99.0 72 17 125/63 05/26/17 12:07 99.2 73 16 125/58 100 05/26/17 11:52 98.7 76 16 104/68 99 I/O 05/26/17 05/26/17 05/26/17 05/27/17 05/27/17 05/27/17 07:00 15:00 23:00 07:00 15:00 23:00 Intake Total 720 ml 757 ml 420 ml 1600 ml Output Total 800 ml Balance 720 ml 757 ml 420 ml 800 ml Intake Oral 720 ml 420 ml 0 ml IV Total 350 ml 1600 ml Packed Cells 400 ml Blood Product IV Normal Saline Flush 7 ml Output Urine Total 800 ml # Voids 2 1 3 # Bowel Movements 1 1 2 6 Laboratory Laboratory Tests Test 05/26/17 15:35 05/27/17 06:00 Hemoglobin 8.5 8.1 Hematocrit 29.1 26.2 Potassium Level 3.6 3.7 Magnesium Level 2.0 2.1 White Blood Count 8.9 Red Blood Count 4.07 Mean Corpuscular Volume 64.5 Mean Corpuscular Hemoglobin 19.9 Mean Corpuscular Hemoglobin Concent 30.9 Red Cell Distribution Width 27.1 Platelet Count 239 Mean Platelet Volume 8.1 Neutrophils (%) (Auto) 71.2 Lymphocytes (%) (Auto) 21.9 Monocytes (%) (Auto) 5.4 Eosinophils (%) (Auto) 1.0 Basophils (%) (Auto) 0.5 Neutrophils # (Auto) 6.3 Lymphocytes # (Auto) 2.0 Monocytes # (Auto) 0.5 Eosinophils # (Auto) 0.1 Basophils # (Auto) 0.0 CBC Comment AUTO DIFF Blood Urea Nitrogen 2 Creatinine 0.27 Random Glucose 88 Albumin 2.1 Calcium Level 8.0 Phosphorus Level 3.3 Sodium Level 143 Chloride Level 111 Carbon Dioxide Level 26.6 Anion Gap 5 Estimat Glomerular Filtration Rate 253 Date/Time Source Procedure Growth Status 05/24/17 10:45 Blood Peripheral Aerobic Blood Culture - Preliminary NO GROWTH IN 2 DAYS Resulted 05/24/17 10:45 Blood Peripheral Anaerobic Blood Culture - Preliminary NO GROWTH IN 2 DAYS Resulted 05/26/17 10:35 Stool Stool Stool Occult Blood (MARIO) - Final HEMOCCULT NEGATIVE Complete 05/24/17 10:50 Nasal Washing Influenza Types A,B Antigen (MARIO) - Final NEGATIVE FOR FLU A AND B ANTIGEN.... Complete Physical Exam HEENT: Pupils round and reactive to light; normocephalic; atraumatic; no jaundice. Throat is clear. NECK: Neck is supple, no JVD, no lymphadenopathy. CHEST: Chest is clear to auscultation and percussion except some bilateral crackles CARDIAC: Regular rate and rhythm with no murmur gallop or rubs. ABDOMEN: Soft, nondistended, nontender; no hepatosplenomegaly; bowel sounds are present in all four quadrants. EXTREMITIES: No clubbing, cyanosis, or edema. SKIN: Normal; no rash; no jaundice. HUMAN RESOURCES ASSISTANT MANAGER: No focal deficits; alert and oriented times three. Assessment and Plan Plan Patient is a 66-year-old lady with multiple medical problems including pneumonia , she has severe anemia continue to drop her hemoglobin, initially she refused any GI workup as an inpatient including upper endoscopy and colonoscopy After discussing with the patient the fact that her hemoglobin continued to drop she is agreeable to have the colonoscopy and endoscopy now 05/27/2017 patient is doing okay, hemoglobin 11 but lower but stable, no sign of GI bleed, upper endoscopy and a colonoscopy was performed IMPRESSION: Small colon polyp Melanosis coli Hiatal hernia Esophageal stricture Small ulcerations in the body of the stomach These findings doesn't explain the patient's severe anemia Virgie Lemos MD May 27, 2017 08:27
[2017-05-27] MEDS ORDERED: AZITHROMYCIN 250 MG TAB PO SCH (09:00)
[2017-05-27] MEDS ORDERED: SIMETHICONE SUSP DROPS 40 MG/0.6 ML 30 ML BTL PO ONE (09:39)
[2017-05-27] MEDS: VENLAFAXINE HCL XR 75 MG CAP PO SCH (09:39)
[2017-05-27] MEDS: SODIUM CHLORIDE 0.9% FLUSH 10 ML FLUSH IV FLUSH SCH (09:39)
[2017-05-27] MEDS: LACTOBACILLUS ACIDOPHILUS TAB PO SCH ×3 (09:39→17:06)
--- NOTE | 2017-05-27 10:28 | HHI.PR ---
Subjective Remarks Patient says she is feeling all right today. Reports breathing continues improved. Denies any abdominal pain. Feels like eating. Small bowel series pending as per GI Objective Vital Signs Date Time Temp Pulse Resp B/P (MAP) Pulse Ox O2 Delivery O2 Flow Rate FiO2 05/27/17 09:45 97.8 68 14 117/73 (88) 96 05/27/17 09:05 98.2 72 16 101/61 (74) 98 05/27/17 08:55 98.4 64 15 111/58 (75) 99 05/27/17 08:35 69 15 90/56 (67) 98 05/27/17 08:25 98.4 71 20 84/46 (59) 100 05/27/17 07:34 98.2 60 15 114/56 (75) 96 05/27/17 06:33 98.2 61 16 141/56 (84) 61 05/27/17 04:00 98.2 68 16 114/56 (75) 96 05/27/17 00:00 98.6 68 16 101/54 (70) 94 05/26/17 20:41 2.00 05/26/17 20:00 99.4 78 16 123/60 (81) 97 05/26/17 16:00 99.2 72 16 112/78 (89) 93 05/26/17 14:30 99.6 78 16 141/69 99 05/26/17 13:52 98.9 71 17 146/70 96 05/26/17 13:22 99.0 76 16 137/60 100 05/26/17 12:52 99.0 89 18 109/58 05/26/17 12:37 99.2 78 16 137/60 05/26/17 12:22 99.0 72 17 125/63 05/26/17 12:07 99.2 73 16 125/58 100 05/26/17 11:52 98.7 76 16 104/68 99 I/O 05/26/17 05/26/17 05/26/17 05/27/17 05/27/17 05/27/17 07:00 15:00 23:00 07:00 15:00 23:00 Intake Total 720 ml 757 ml 420 ml 1600 ml 400 ml Output Total 800 ml Balance 720 ml 757 ml 420 ml 800 ml 400 ml Intake Oral 720 ml 420 ml 0 ml IV Total 350 ml 1600 ml Packed Cells 400 ml Blood Product IV Normal Saline Flush 7 ml Other 400 ml Output Urine Total 800 ml # Voids 2 1 3 # Bowel Movements 1 1 2 6 Result Diagram: 05/27/1759905/27/17 06 Objective Remarks GENERAL: Patient lying flat in bed. Appears comfortable. SKIN: Warm and dry. HEAD: Normocephalic. EYES: No scleral icterus. No injection or drainage. NECK: Supple, trachea midline. No JVD. CARDIOVASCULAR: Regular rate and rhythm without murmurs, gallops, or rubs. RESPIRATORY: Breath sounds equal bilaterally. No accessory muscle use. GASTROINTESTINAL: Abdomen soft, non-tender, nondistended. Bilateral rhonchi improving. No wheezes. MUSCULOSKELETAL: No cyanosis, or edema. BACK: Nontender without obvious deformity. No CVA tenderness. A/P Assessment and Plan //B/l community acquired PNA, cxr with b/l patchy infiltrates - clinically improved, continue rocephin and zithromax, O2 via NC. = Respiratory status continues improving. Continue antibiotics to complete course. Continue to monitor. //Severe anemia - Fe low. Patient has poor diet (liquid fad diets). S/p transfusion 1 units pRBC, Hb 7.6 today. Patient has dysphagia. Pt has never had colonoscopy . Hemoccult pending. Pt has chronic constipation. Consult gastroenterology. = 05/26. Haptoglobin high, LDH slightly high. No other evidence of hemolysis. Hemoglobin 8.5, improved after transfusion. IV iron 1. Plan for EGD/ colonoscopy tomorrow. = 05/27. Colonoscopy with colon polyp, EGD with esophageal stricture., No cause for anemia. Status post IV iron infusion yesterday. IV iron ordered again. Hematology consulted. //Esophageal stricture. //Hiatal hernia //Small stomach body ulcerations No explanation of patient's anemia. Patient will need repeat colonoscopy in 3 years. Biopsies pending. Follow-up with GI as outpatient. //Depression, HLD - continue home meds. //Hypokalemia. Potassium 3.0 this morning. Replaced. Repeat 3.6. //DVT px - SCDs Discharge Planning Pending hematology consultation. Magen Harrison MD May 27, 2017 10:28
[2017-05-27] MEDS ORDERED: IRON SUCROSE INJ 100 MG in SODIUM CHLORIDE 0.9% INJ 100 ML IV ONE (10:30)
--- NOTE | 2017-05-27 11:51 | RADRPT ---
EXAM DATE/TIME: 05/27/2017 10:09 [facility] COMPARISON: No previous studies available for comparison. INDICATIONS : Anemia. FLUORO TIME: 1.5 minutes IMAGE COUNT: 9 CONTRAST: Entero Vu 24% Barium Sulfate (24% w/v, 20% w/w) IMAGING TIME(S): 15 min, 30 min, 45 min MEDICAL HISTORY : None. SURGICAL HISTORY : None. ENCOUNTER: Initial ACUITY: 2 weeks PAIN SCORE: 0/10 LOCATION: Bilateral abdomen FINDINGS: Preliminary film is unremarkable. The stomach is grossly unremarkable. Examination of the small bowel demonstrates normal mucosal pattern involving the jejunum and ileum. There is no evidence of mass or obstruction. No intraluminal filling defects are identified. Small bowel transit time is normal at 30 minutes. Fluoroscopy of the abdomen and terminal ileum demonstrat es no abnormality. CONCLUSION: Normal examination. Hussein Rodrigues MD on May 27, 2017 at 11:49 Board Certified Radiologist. This report was verified electronically.
[2017-05-27] MEDS ORDERED: MAGNESIUM CITRATE SOLN 300 ML BTL PO ONE ×2 (12:00→18:00)
[2017-05-27] MEDS: cefTRIAXone INJ 1,000 MG in SODIUM CHLORIDE 0.9% INJ 100 ML IV SCH (12:18)
--- NOTE | 2017-05-27 14:00 | EKG ---
Date Performed: 05/27/2017 Time Performed: 01:56:17 PTAGE: 66 years EKG: Sinus rhythm NORMAL ECG NO PREVIOUS TRACING DOCTOR: Scott Herbert Interpretating Date/Time 05/27/2017 13:59:10
[2017-05-27] MEDS: ACETAMINOPHEN/HYDROcodone 325 MG/10 MG TAB PO PRN (14:28)
[2017-05-27] MEDS: BISACODYL EC 5 MG TABEC PO SCH (17:05)
[2017-05-27] MEDS: RESP: ALBUTEROL 2.5 MG/3 ML NEB (PRN) NEB (20:39)
[2017-05-27 21:47] LABS: TOTAL PROTEIN SPE 7.1 GM/DL (6.0-7.6)
[2017-05-28] VITALS: BP 111/55; PULSE 90; RESP 16; TEMP 98.9; O2SAT 93
[2017-05-28] MEDS: SODIUM CHLORIDE 0.9% FLUSH 10 ML FLUSH IV FLUSH SCH ×2 (01:04→09:16)
[2017-05-28] MEDS: FERROUS SULFATE 325 MG (65 MG ELEMENTAL IRON) TAB PO SCH ×2 (01:04→09:15)
[2017-05-28] MEDS: DOCUSATE SODIUM 100 MG CAP PO SCH ×2 (01:04→09:15)
[2017-05-28] MEDS: BISACODYL EC 5 MG TABEC PO SCH (01:04)
[2017-05-28 04:00] VITALS: BP 109/55; PULSE 90; RESP 16; TEMP 98.9; O2SAT 95
--- NOTE | 2017-05-28 05:28 | MB ---
cc: MUKESH HOLMAN MD DATE OF CONSULTATION 05/27/2017 CHIEF COMPLAINT 1. Anemia. 2. Iron deficiency. 3. GI bleeding HISTORY OF PRESENT ILLNESS Ms. Miranda is a 66-year-old lady with a history of depression and multiple orthopedic surgeries who presented to [facility] on May 24, 2017, with fever and cough at home. Laboratory findings revealed a hemoglobin of 6.8, a white blood cell count of 13.8 with an elevated absolute neutrophil count at 11.8. MCV was 56.4, RDW was 19.1, platelet count was 262,000. Chemistry studies with a normal creatinine, bilirubin of 0.5, normal AST, ALT, alkaline phosphatase, lactate dehydrogenase 259, total protein 7.3 with an albumin low at 2.3, haptoglobin of 394 and reticulocyte count is 1.1. Vitamin B12 is 823. Stool for occult blood was negative x2. She tested negative for influenza. Blood cultures with no growth to date. She was transfused 2 units of packed red blood cells during this hospital stay. She has been evaluated by the GI service and underwent an EGD and a colonoscopy on May 27. EGD showed small linear ulcers in the body of the stomach, biopsy performed. She had a small hiatal hernia and a stricture in the distal esophagus that is status post dilation. Colonoscopy performed which showed good colon prep, melanosis coli, internal hemorrhoids and a small polyp which was removed. She had small bowel follow-through performed. She has received 300 mg of IV iron sucrose and is currently on oral iron supplementation. PAST MEDICAL HISTORY Depression. PAST SURGICAL HISTORY 1. Right knee surgery. 2. Electrosurgery. HOME MEDICATIONS None. ALLERGIES No known drug allergies. FAMILY HISTORY No family history of anemia. SOCIAL HISTORY The patient recently moved to this area from [place]. She is moving to be closer to her family including her sister Jael. She denies tobacco, alcohol and illegal drug use. REVIEW OF SYSTEMS GENERAL: Positive for fatigue. GI: Constipation. Poor diet. RESPIRATORY: Shortness of breath which is improving. All other review of systems are negative. PHYSICAL EXAMINATION GENERAL: A well-developed, well-nourished lady in no distress, resting in bed with family at bedside. HEAD: Normocephalic, atraumatic. EYES: No scleral icterus. No conjunctival pallor. OROPHARYNX: Mucous membranes moist. NECK: Supple with no palpable lymphadenopathy. CARDIOVASCULAR: Regular rate and rhythm with no murmurs. RESPIRATORY: Clear to auscultation bilaterally. GI: Soft, nontender, nondistended with bowel sounds present. EXTREMITIES: No edema. NEURO: Grossly nonfocal. PSYCH: Appropriate mood and affect. ASSESSMENT AND PLAN 1. Anemia with microcytosis. Uncertain of baseline hemoglobin or MCV. No evidence of hemolysis. Vitamin B12 WNL. She is status post transfusion of 2 units of packed red blood cells and has received a total to 300 mg of IV iron sucrose. Reticulocyte count is within normal limits. Hemoglobin stable after transfusion. Stool for occult blood is negative and thus far GI team as not found the etiology of bleeding. She has uterus intact; however, denies any vaginal bleeding. Denies blood in her urine. Will check folate (history of poor diet, although this result will be influenced by blood transfusion), serum protein electrophoresis (given protein gap between total protein and albumin), peripheral blood smear. Urine for occult blood. Agree with oral iron supplementation. She has thus far received 800 mg of elemental iron while inpatient. She is markedly microcytic, greater than would be expected solely from iron deficiency/anemia of chronic inflammation. Will replace iron and at that time would perform further evaluation for underlying thalassemia. Given normal platelet count, normal WBC an underlying bone marrow disorder is less likely. She will need close follow up with hematology clinic. MD YAKELIN Mackay/DOMINIK /6:22 PM /5:10 AM KEKE
[2017-05-28 06:57] LABS: BASOPHIL % 0.3 % (0.0-2.0); EOSINOPHIL # 0.2 TH/MM3 (0-0.4); EOSINOPHIL % 1.9 % (0.0-4.0); HEMATOCRIT 26.4 % (35.0-46.0); LYMPH % 21.9 % (9.0-44.0); LYMPHOCYTE # 2.1 TH/MM3 (1.0-4.8); MEAN CELL VOLUME 64.8 FL (80.0-100.0); MEAN CORPUSCULAR HEMOGLOBIN 19.5 PG (27.0-34.0); NEUT % 71.9 % (16.0-70.0); PLATELET COUNT 271 TH/MM3 (150-450); RED BLOOD COUNT 4.07 MIL/MM3 (4.00-5.30); RED CELL DISTRIBUTION WIDTH 27.4 % (11.6-17.2); WHITE BLOOD COUNT 9.7 TH/MM3 (4.0-11.0)
[2017-05-28 07:02] LABS: HEMO FLAGS AUTO DIFF
[2017-05-28 07:47] LABS: KERATOCYTES OCC (NORMAL); ROULEAUX PRESENT (NORMAL); SPHEROCYTES OCC (NORMAL); TEARDROP RBCS 1+ (NORMAL)
[2017-05-28 07:48] LABS: PLATELET ESTIMATE SMEAR NORMAL (NORMAL); PLATELET MORPHOLOGY NORMAL (NORMAL); SCAN/DIFF AUTO DIFF CONFIRMED
[2017-05-28 08:00] VITALS: BP 107/52; PULSE 72; RESP 18; TEMP 99.6; O2SAT 93
[2017-05-28] MEDS ORDERED: LEVOFLOXACIN 750 MG TAB PO SCH (09:00)
[2017-05-28] MEDS: LACTOBACILLUS ACIDOPHILUS TAB PO SCH ×2 (09:15→12:13)
[2017-05-28] MEDS: VENLAFAXINE HCL XR 75 MG CAP PO SCH (09:16)
[2017-05-28] MEDS ORDERED: FERR325T20 PO (11:23)
[2017-05-28] MEDS ORDERED: LEVA750T9 PO (11:23)
[2017-05-28] MEDS ORDERED: OMEP40CA2 PO (11:23)
[2017-05-28] MEDS ORDERED: DOCU1CAP39 PO ×2 (11:23→12:17)
[2017-05-28] MEDS ORDERED: VENTAER INH (11:27)
[2017-05-28] MEDS ORDERED: PANTOPRAZOLE SOD 40 MG DELAYED RELEASE TAB PO ONE (11:30)
[2017-05-28 12:00] VITALS: BP_SYST 127; BP_SYST 135; BP_DIAS 59; BP_DIAS 71; PULSE 136; PULSE 87; RESP 18; RESP 20; TEMP 96.9; TEMP 99.2; O2SAT 94; O2SAT 95
--- NOTE | 2017-05-29 01:50 | HHI.DS ---
Discharge Summary Admission Date May 24, 2017 at 12:15 Discharge Date: May 28, 2017 Admitting Diagnosis pneumonia (1) Community acquired pneumonia ICD Code: J18.9 - Pneumonia, unspecified organism (2) Severe anemia ICD Code: D64.9 - Anemia, unspecified (3) Symptomatic anemia ICD Code: D64.9 - Anemia, unspecified (4) Sepsis ICD Code: A41.9 - Sepsis, unspecified organism Procedures EGD, colonoscopy. Please see report. Brief History - From Admission Mrs. Miranda is a 66-year-old female. She came in secondary to fevers and cough. Fever, tachycardia, leukocytosis, and pneumonia qualified her for sepsis. No hypotension. She says that she isn't feeling ill for several days and with the onset of fever with progressively worsening cough she decided to come to emergency department at the urging of her sister. Anemia is also discovered. She has a hemoglobin level of 6.3 without evidence of GI bleed. We discussed different possibilities. When I mentioned poor iron absorption or low vitamin levels she admits that she has a poor diet and will often consume a liquid diet mostly. Malnutrition could be an etiology for her anemia then, but further workup is needed. She cannot recall any active bleed. She has not had any recent surgeries. She has a prior history of anemia without any need a transfusion that she can recall. No chest pain reported. She does have myalgias. Imaging shows bilateral pneumonia. At baseline she has hyperlipidemia and depression. She does not take cholesterol medicine secondary to a history of recall of one of her medications to try to treat her cholesterol with and the lack of trust in cholesterol medication treatments. She is on Effexor for depression treatment. No other complaints today. CBC/BMP: 05/28/17 0540 05/27/17 0600 Significant Findings Laboratory Tests Test 05/26/17 05:30 05/26/17 15:35 05/27/17 06:00 05/27/17 20:20 Red Blood Count 3.80 MIL/MM3 (4.00-5.30) Hemoglobin 6.9 GM/DL (11.6-15.3) 8.5 GM/DL (11.6-15.3) 8.1 GM/DL (11.6-15.3) Hematocrit 23.1 % (35.0-46.0) 29.1 % (35.0-46.0) 26.2 % (35.0-46.0) Mean Corpuscular Volume 60.8 FL (80.0-100.0) 64.5 FL (80.0-100.0) Mean Corpuscular Hemoglobin 18.0 PG (27.0-34.0) 19.9 PG (27.0-34.0) Mean Corpuscular Hemoglobin Concent 29.7 % (32.0-36.0) 30.9 % (32.0-36.0) Red Cell Distribution Width 22.2 % (11.6-17.2) 27.1 % (11.6-17.2) Target Cells 1+ (NORMAL) 1+ (NORMAL) Haptoglobin 394 MG/DL (30-200) Blood Urea Nitrogen 5 MG/DL (7-18) 2 MG/DL (7-18) Creatinine 0.34 MG/DL (0.50-1.00) 0.27 MG/DL (0.50-1.00) Calcium Level 8.0 MG/DL (8.5-10.1) 8.0 MG/DL (8.5-10.1) Potassium Level 3.0 MEQ/L (3.5-5.1) Lactate Dehydrogenase 259 U/L (84-246) Neutrophils (%) (Auto) 71.2 % (16.0-70.0) Polychromasia 2.0 % (0.0-1.9) Spherocytes 1+ (NORMAL) Albumin 2.1 GM/DL (3.4-5.0) Chloride Level 111 MEQ/L (98-107) Folate GREATER THAN 20.0 NG/ML Test 05/28/17 05:40 Hemoglobin 7.9 GM/DL (11.6-15.3) Hematocrit 26.4 % (35.0-46.0) Mean Corpuscular Volume 64.8 FL (80.0-100.0) Mean Corpuscular Hemoglobin 19.5 PG (27.0-34.0) Mean Corpuscular Hemoglobin Concent 30.0 % (32.0-36.0) Red Cell Distribution Width 27.4 % (11.6-17.2) Neutrophils (%) (Auto) 71.9 % (16.0-70.0) Basophilic Stippling FAINT (NORMAL) Spherocytes OCC (NORMAL) Tear Drop Cells 1+ (NORMAL) Rouleau PRESENT (NORMAL) Keratocytes OCC (NORMAL) Imaging Last Impressions Small Bowel X-Ray 05/27/17 0000 Signed Impressions: Service Date/Time: May 10:09 - CONCLUSION: Normal examination. Hussein Rodrigues MD Chest X-Ray 05/24/17 1008 Signed Impressions: Service Date/Time: Wednesday, May 24, 2017 10:20 - CONCLUSION: Patchy airspace disease both lungs consistent with an inflammatory process. There is no consolidation. Renard Clark MD FACR PE at Discharge GENERAL: Well-nourished, well-developed CF patient. SKIN: Warm and dry. HEAD: Normocephalic. EYES: No scleral icterus. No injection or drainage. NECK: Supple, trachea midline. No JVD or lymphadenopathy. CARDIOVASCULAR: Regular rate and rhythm without murmurs, gallops, or rubs. RESPIRATORY: Breath sounds equal bilaterally. Crackles in LLL. No accessory muscle use. GASTROINTESTINAL: Abdomen soft, non-tender, nondistended. EXTREMITIES: No cyanosis, or edema. NEUROLOGICAL: Awake, alert, and oriented x 3. Non-focal. Pt update on day of discharge Date of service 05/28/17. Patient seen the morning of 05/28/17. Patient says she is feeling well. Denies any chest pain or shortness of breath. Would like to go home. Family at bedside. Patient says she will definitely see primary care on Wednesday or Wednesday. Hospital Course Chest x-ray showed patchy airspace disease bilateral lungs, and was treated with broad-spectrum antibiotics with gradual resolution of symptoms. Patient was also found to have severe anemia with hemoglobin in the sixes, requiring transfusion. Gastroenterology was consult to, found small stomach ulcers for which patient will need PPI and follow-up with gastroenterology. She was given IV iron supplementation, and will be be discharged on by mouth iron supplementation. Patient agrees to pursue close follow-up early next week with primary care. //B/l community acquired PNA, cxr with b/l patchy infiltrates - clinically improved, continue rocephin and zithromax, O2 via NC. = Respiratory status continues improving. Continue antibiotics to complete course. Continue to monitor. //Severe anemia - Fe low. Patient has poor diet (liquid fad diets). S/p transfusion 1 units pRBC, Hb 7.6 today. Patient has dysphagia. Pt has never had colonoscopy . Hemoccult pending. Pt has chronic constipation. Consult gastroenterology. = 05/26. Haptoglobin high, LDH slightly high. No other evidence of hemolysis. Hemoglobin 8.5, improved after transfusion. IV iron 1. Plan for EGD/ colonoscopy tomorrow. = 05/27. Colonoscopy with colon polyp, EGD with esophageal stricture., No cause for anemia. Status post IV iron infusion yesterday. IV iron ordered again. Hematology consulted. //Esophageal stricture. //Hiatal hernia //Small stomach body ulcerations No explanation of patient's anemia. Patient will need repeat colonoscopy in 3 years. Biopsies pending. Follow-up with GI as outpatient. //Depression, HLD - continue home meds. //Hypokalemia. Potassium 3.0 this morning. Replaced. Repeat 3.6. //DVT px - SCDs Discharge Planning Pending hematology consultation. Pt Condition on Discharge: Good Discharge Disposition: Discharge Home Discharge Time: > 30 minutes Discharge Instructions DIET: Follow Instructions for: Heart Healthy Diet Activities you can perform: Regular-No Restrictions Follow up Referrals: Appointment for Follow Up Gastroenterology - 1 Week with Ade Randolph MD Oncology/Hematology - 1 Week with Citlalli Wagner MD PCP Follow-up - 2-3 Days New Medications: Albuterol 18 GM Inh (Ventolin Hfa 18 GM Inh) 90 Mcg/Act Aer 2 PUFF INH Q4-6H PRN for SHORTNESS OF BREATH, #1 INHALER 0 Refills Omeprazole (Omeprazole) 40 Mg Cap 40 MG PO DAILY for ULCER, #30 CAP 0 Refills Docusate Sodium (Dok) 100 Mg Cap 100 MG PO BID for Constipation, #60 CAP Ferrous Sulfate (Ferosul) 325 Mg (65 Mg Iron) Tablet 325 MG PO BID for anemia for 30 Days, TAB Levofloxacin (Levaquin) 750 Mg Tablet 750 MG PO DAILY for Infection for 1 Day, #1 TAB Continued Medications: Venlafaxine ER 24 HR (Venlafaxine ER 24 HR) 150 Mg Cap 150 MG PO DAILY, #30 CAP 0 Refills Magen Harrison MD May 29, 2017 01:50
[2017-05-31 21:55] LABS: ALBUMIN SPE 3.03 GM/DL (3.50-5.00)
[2017-05-31 21:56] LABS: ALPHA 1 GLOBULIN 0.38 GM/DL (0.11-0.29); ALPHA 2 GLOBULIN 1.19 GM/DL (0.22-1.00); BETA GLOBULINS (SPE) 0.99 GM/DL (0.53-1.03)
== END 2017-05-28 12:29 | disposition home or self-care (01) | DRG 871 ==
LOC: PHED 09:03 → PHEDA 12:15 → PH3A 14:26
PROVIDERS: ADMIT Internal Medicine; ATTEND Internal Medicine
PROC: 30233N1 Transfusion of Nonautologous Red Blood Cells into Peripheral Vein, Percutaneous Approach (ICD-10-PCS; 2017-05-24)
PROC: 0DBE8ZX Excision of Large Intestine, Via Natural or Artificial Opening Endoscopic, Diagnostic (ICD-10-PCS; 2017-05-27)
PROC: 0D738ZZ Dilation of Lower Esophagus, Via Natural or Artificial Opening Endoscopic (ICD-10-PCS; principal; 2017-05-27 07:51)
PROC: 0DD68ZX Extraction of Stomach, Via Natural or Artificial Opening Endoscopic, Diagnostic (ICD-10-PCS; 2017-05-27 07:51)
DX: A41.9 Sepsis, unspecified organism (principal); J18.9 Pneumonia, unspecified organism; E46 Unspecified protein-calorie malnutrition; K22.2 Esophageal obstruction; D50.9 Iron deficiency anemia, unspecified; K25.7 Chronic gastric ulcer without hemorrhage or perforation; E78.5 Hyperlipidemia, unspecified; K63.5 Polyp of colon; K44.9 Diaphragmatic hernia without obstruction or gangrene; K64.8 Other hemorrhoids; K63.89 Other specified diseases of intestine; K59.09 Other constipation; E87.6 Hypokalemia; F32.9 Major depressive disorder, single episode, unspecified; Z87.891 Personal history of nicotine dependence; Z96.651 Presence of right artificial knee joint
CPT/HCPCS: 36430; 71010; 74250; 80048; 80053; 80061; 80069; 82272; 82607; 82728; 82746; 83010; 83540; 83550; 83605; 83615; 83735; 84132; 84165; 85014; 85018; 85025; 85044; 85060; 85610; 85730; 86850; 86900; 86901; 86920; 87040; 87804; 88305; 88312; 93005; 94640; 94664; 96361; 96365; J0456; J0696; J1756; J1940; J3480; J7030; J7050; J7613; P9016

== ENCOUNTER 2017-12-29 08:12 | Emergency (ER) | payer MEDICARE, OTHER ==
[~2017-12-29] VITALS: Ht 144.8 cm; Wt 60.0 kg
[~2017-12-29 08:12] MED LIST changes: +DOCU1CAP39 PO; +FERR325T20 PO; +LEVA750T9 PO; +OMEP40CA2 PO; -PROZ20CA11 PO; +VENL150C39 PO; +VENTAER INH
[2017-12-29 08:21] VITALS: BP 132/82; PULSE 77; RESP 16; TEMP 98.3; O2SAT 99
[2017-12-29] MEDS ORDERED: QUET1TAB7 PO (08:34)
[2017-12-29] MEDS ORDERED: LEXA10TA PO (08:34)
--- NOTE | 2017-12-29 08:46 | PD ---
HPI Chief Complaint: ENT Complaint Time Seen by Provider: 08:31 Travel History International Travel<30 days: No Contact w/Intl Traveler<30days: No Traveled to known affect area: No History of Present Illness HPI Patient is a 67-year-old female presenting to the emergency department for evaluation of left ear bleeding. Patient states she woke up this morning and rubbed her ear and noticed blood on her hand. She states prior to that she felt her ear pop was concerned. Patient does admit to using Q-tips daily. Patient denies any pain, fever, chills, headache. Symptom onset was sudden, symptoms are mild in nature. Bleeding resolved on its own. Patient does take 81 mg of aspirin daily. PFSH Past Medical History Anemia: Yes (IN PAST) Arthritis: Yes Depression: Yes Cancer: No Cardiovascular Problems: Yes High Cholesterol: Yes Endocrine: No Genitourinary: No Musculoskeletal: Yes Neurologic: No Psychiatric: Yes Reproductive: No Respiratory: Yes Immunizations Current: Yes Tetanus Vaccination: > 5 Years Past Surgical History Joint Replacement: Yes (RIGHT KNEE) Other Surgery: Yes Social History Alcohol Use: No Tobacco Use: No (FORMER) Substance Use: No Allergies-Medications (Allergen,Severity, Reaction): Coded Allergies: No Known Allergies (Unverified Allergy, Unknown, 12/29/17) Reported Meds & Prescriptions Reported Meds & Active Scripts Active Reported Quetiapine (Quetiapine Fumarate) 25 Mg Tab 25 Mg PO DAILY Lexapro (Escitalopram Oxalate) 10 Mg Tab 10 Mg PO DAILY Review of Systems Except as stated in HPI: all other systems reviewed are Neg HENT: Positive: Ear Discharge Physical Exam Narrative GENERAL: Well-developed, well-nourished, alert elderly female. Presenting in no acute distress. SKIN: Warm and dry. HEAD: Normocephalic. EYES: No scleral icterus. No injection or drainage. EARS: Bilateral pinnae and right external canal appear within normal limits. Bilateral tympanic membranes without erythema, dullness or perforation. Left external ear canal with superficial abrasion at the 6 o'clock position. No active bleeding noted. Tympanic membrane is intact. There are no signs of infection noted. NECK: Supple, trachea midline. No JVD or lymphadenopathy. CARDIOVASCULAR: Regular rate and rhythm without murmurs, gallops, or rubs. RESPIRATORY: Breath sounds equal bilaterally. No accessory muscle use. GASTROINTESTINAL: Abdomen soft, non-tender, nondistended. MUSCULOSKELETAL: No cyanosis, or edema. BACK: Nontender without obvious deformity. No CVA tenderness. Data Data Last Documented VS Vital Signs Date Time Temp Pulse Resp B/P (MAP) Pulse Ox O2 Delivery O2 Flow Rate FiO2 12/29/17 08:21 98.3 77 16 132/82 (99) 99 MDM Medical Decision Making Medical Screen Exam Complete: Yes Emergency Medical Condition: Yes Interpretation(s) Vital Signs Date Time Temp Pulse Resp B/P (MAP) Pulse Ox O2 Delivery O2 Flow Rate FiO2 12/29/17 08:21 98.3 77 16 132/82 (99) 99 Differential Diagnosis Ruptured membrane versus otitis media versus otitis externa versus other Narrative Course Patient is a 67-year-old female presenting to emerge from for evaluation of bleeding from her left ear. Exam is consistent with an abrasion. Patient was advised to avoid putting anything in her ear. She was advised at this time there are no signs or symptoms of infection. She was reassured that abrasion will heal if left alone. She was encouraged to follow-up with her primary doctor or return to emergency department any new worsening symptoms. Patient verbalized understanding of these instructions. Patient stable for discharge. Diagnosis Primary Impression: Abrasion of ear canal Qualified Codes: S00.412A - Abrasion of left ear, initial encounter Referrals: Primary Care Physician Patient Instructions: Abrasion (ED), General Instructions Additional Instructions: Do not put anything in her ear Follow-up with your primary doctor Return to emergency department for any new or worsening symptoms Med/Other Pt SpecificInfo: No Change to Meds Disposition: 01 DISCHARGE HOME Condition: Stable Zo Vee Dec 29, 2017 08:46
== END 2017-12-29 08:56 | disposition home or self-care (01) ==
LOC: NEPD 08:12
DX: S00.412A Abrasion of left ear, initial encounter (principal); X58.XXXA Exposure to other specified factors, initial encounter; Z79.82 Long term (current) use of aspirin
CPT/HCPCS: 99281